=== PATIENT | female | born 1945 | race Caucasian/White ===

== ENCOUNTER 2017-01-18 13:06 | Emergency (ER) | payer MEDICARE, OTHER ==
[2017-01-18 14:39] LABS: URINE BILIRUBIN 1+ (NEGATIVE); URINE BLOOD TRACE (NEGATIVE); URINE GLUCOSE (UA) NORMAL (NORMAL); URINE KETONE 1+ (NEGATIVE); URINE LEUKOCYTE ESTERASE 1+ (NEGATIVE); URINE NITRATE NEGATIVE (NEGATIVE); URINE PROTEIN 1+ (NEGATIVE)
[2017-01-18 15:20] LABS: URINE BACTERIA 2+ (NONE SEEN); URINE MUCUS 1+; URINE RBC 0-5 /[HPF] (0-2); URINE WBC 0-5 /[HPF] (0-5)
== END 2017-01-18 15:35 | disposition home or self-care (01) ==
LOC: ER 13:06
PROVIDERS: Emergency Medicine
DX: M79.605 Pain in left leg (principal); G89.29 Other chronic pain; I11.0 Hypertensive heart disease with heart failure; I50.9 Heart failure, unspecified; E11.9 Type 2 diabetes mellitus without complications; K21.9 Gastro-esophageal reflux disease without esophagitis; E78.5 Hyperlipidemia, unspecified; F32.9 Major depressive disorder, single episode, unspecified; E03.9 Hypothyroidism, unspecified; Z79.02 Long term (current) use of antithrombotics/antiplatelets; Z79.84 Long term (current) use of oral hypoglycemic drugs; Z79.899 Other long term (current) drug therapy; Z79.82 Long term (current) use of aspirin
CPT/HCPCS: 81001; 87086; 93971; 99283; 99283-25

== ENCOUNTER 2017-02-19 23:37 | Observation (INO) | payer MEDICARE, OTHER ==
[~2017-02-19] VITALS: Ht 167.6 cm; Wt 146.0 kg
[2017-02-20 00:36] LABS: BASO % 0.2 % (0.1-1.2); EOS % 0.1 % (0.7-5.8); GRAN # 10.6 10_X3_uL (1.6-6.1); HEMATOCRIT 38.9 % (34-45); HEMOGLOBIN 12.9 g/dL (11.2-15.7); LYMPH # 0.7 10_X3_uL (1.2-3.7); LYMPH % 5.9 % (19.3-51.7); MEAN CORPUSCULAR HEMOGLOBIN 31.8 pg (27.0-33.0); MEAN CORPUSCULAR HGB CONC 33.2 g/dL (32.0-36.0); MEAN CORPUSCULAR VOLUME 95.8 fL (79-95); MEAN PLATELET VOLUME 10.3 fl (7.5-11.5); MONO % 7.8 % (4.7-12.5); PLATELET COUNT 179 x10_3/uL (182-369); RED BLOOD COUNT 4.06 x10_6/uL (3.9-5.2); RED CELL DISTRIBUTION WIDTH 13.3 % (11.7-14.4); WHITE BLOOD COUNT 12.3 x10_3/uL (4.0-10.0)
[2017-02-20 00:55] LABS: ALBUMIN 3.4 gm/dL (3.4-5.0); ALKALINE PHOSPHATASE 57 U/L (50-136); ALT/SGPT 8 U/L (3.5-33.9); AST/SGOT 10 U/L (7.04-26.96); BILIRUBIN,TOTAL 1.21 mg/dL (0.0-1.0); BLOOD UREA NITROGEN 18 mg/dL (7-18); CALCIUM 8.7 mg/dL (8.7-10.7); CARBON DIOXIDE 24 mmol/L (21-32); CREATINE KINASE 41 U/L (21-215); CREATININE 0.9 mg/dL (0.6-1.3); GLUCOSE,RANDOM 249 mg/dL (70-99); POTASSIUM 4.4 mmol/L (3.5-5.1); SODIUM 135 mmol/L (136-145); TOTAL PROTEIN 6.3 gm/dL (6.4-8.2)
[2017-02-20 01:39] LABS: URINE BILIRUBIN 2+ (NEGATIVE); URINE BLOOD 3+ (NEGATIVE); URINE GLUCOSE (UA) 50 mg/dL (NORMAL); URINE KETONE TRACE (NEGATIVE); URINE LEUKOCYTE ESTERASE 2+ (NEGATIVE); URINE NITRATE POSITIVE (NEGATIVE); URINE PROTEIN 2+ (NEGATIVE)
[2017-02-20 01:40] LABS: URINE BACTERIA 4+ (NONE SEEN); URINE WBC >15 /[HPF] (0-5)
[2017-02-20 01:42] LABS: URINE MUCUS 1+
[2017-02-20 07:01] LABS: BASO % 0.1 % (0.1-1.2); GRAN # 13.7 10_X3_uL (1.6-6.1); GRAN % 80.2 % (34.0-71.1); HEMATOCRIT 37.4 % (34-45); HEMOGLOBIN 12.2 g/dL (11.2-15.7); LYMPH # 1.7 10_X3_uL (1.2-3.7); LYMPH % 10.1 % (19.3-51.7); MEAN CORPUSCULAR HEMOGLOBIN 31.7 pg (27.0-33.0); MEAN CORPUSCULAR HGB CONC 32.6 g/dL (32.0-36.0); MEAN CORPUSCULAR VOLUME 97.1 fL (79-95); MEAN PLATELET VOLUME 10.2 fl (7.5-11.5); MONO # 1.6 10_X3_uL (0.2-0.9); MONO % 9.6 % (4.7-12.5); PLATELET COUNT 175 x10_3/uL (182-369); RED BLOOD COUNT 3.85 x10_6/uL (3.9-5.2); RED CELL DISTRIBUTION WIDTH 13.2 % (11.7-14.4); WHITE BLOOD COUNT 17.1 x10_3/uL (4.0-10.0)
[2017-02-20 07:13] LABS: PARTIAL THROMBOPLASTIN TIME 26.4 SECONDS (21.3-29.3); PROTHROMBIN TIME (PATIENT) 10.9 SECONDS (9.9-11.1)
[2017-02-20 07:15] LABS: CKMB 1.5 ng/ml (0.0-5.0)
[2017-02-20 07:16] LABS: TROP-I < 0.30 NG/ML (0.00-0.30)
[2017-02-20 12:44] LABS: TROP-I < 0.30 NG/ML (0.00-0.30)
[2017-02-20 19:10] LABS: CKMB 1.7 ng/ml (0.0-5.0)
[2017-02-20 19:13] LABS: TROP-I < 0.30 NG/ML (0.00-0.30)
[2017-02-21 08:31] LABS: CKMB 2.2 ng/ml (0.0-5.0)
[2017-02-21 08:32] LABS: TROP-I < 0.30 NG/ML (0.00-0.30)
== END 2017-02-21 12:30 | disposition other institution (70) ==
LOC: ER 23:37 → MS 23:59 → ER 02-20 04:52 → MS 02-20 04:52
PROVIDERS: Emergency Medicine; ADMIT Family Medicine
DX: R07.89 Other chest pain (principal); I20.0 Unstable angina; J96.01 Acute respiratory failure with hypoxia; J44.1 Chronic obstructive pulmonary disease with (acute) exacerbation; N12 Tubulo-interstitial nephritis, not specified as acute or chronic; I47.2 Ventricular tachycardia; N39.0 Urinary tract infection, site not specified; E83.42 Hypomagnesemia; M79.602 Pain in left arm; I25.10 Atherosclerotic heart disease of native coronary artery without angina pectoris; E03.9 Hypothyroidism, unspecified; F41.9 Anxiety disorder, unspecified; E11.65 Type 2 diabetes mellitus with hyperglycemia; I10 Essential (primary) hypertension; G89.4 Chronic pain syndrome; E78.5 Hyperlipidemia, unspecified; Z86.73 Personal history of transient ischemic attack (TIA), and cerebral infarction without residual deficits; R31.9 Hematuria, unspecified; R60.0 Localized edema; I25.2 Old myocardial infarction; E87.6 Hypokalemia; J30.9 Allergic rhinitis, unspecified; K21.9 Gastro-esophageal reflux disease without esophagitis; R33.9 Retention of urine, unspecified; Z98.51 Tubal ligation status; Z95.5 Presence of coronary angioplasty implant and graft; F17.210 Nicotine dependence, cigarettes, uncomplicated; Z79.82 Long term (current) use of aspirin; Z79.899 Other long term (current) drug therapy; Z79.02 Long term (current) use of antithrombotics/antiplatelets; Z79.4 Long term (current) use of insulin; Z79.891 Long term (current) use of opiate analgesic; Z88.6 Allergy status to analgesic agent; Z88.8 Allergy status to other drugs, medicaments and biological substances; Z82.49 Family history of ischemic heart disease and other diseases of the circulatory system; Z80.51 Family history of malignant neoplasm of kidney; Z80.41 Family history of malignant neoplasm of ovary; Z80.8 Family history of malignant neoplasm of other organs or systems; E66.9 Obesity, unspecified; Z68.43 Body mass index [BMI] 50.0-59.9, adult; M54.2 Cervicalgia
CPT/HCPCS: 36415; 36600; 51702; 71010; 80053; 80061; 81001; 82550; 82553; 82803; 82962; 83036; 83605; 83735; 84443; 85025; 85610; 85730; 87040; 87086; 87186; 93005; 93041; 94640; 94664; 96361; 96365; 96367; 96372; 99070; 99284; 99285-25; G0378; J7040